=== PATIENT | male | born 1950 | race Caucasian/White ===

== ENCOUNTER 2017-12-31 10:51 | Inpatient (IN) | payer MEDICARE, OTHER ==
[2017-12-26 11:30] LABS: BASOPHILS % (AUTO) 0.4 % (0-1); EOSINOPHILS # (AUTO) 0.2 X10'3 (0-0.9); EOSINOPHILS % (AUTO) 2.9 % (0-6); HEMATOCRIT 46.4 % (42.0-52.0); HEMOGLOBIN 16.2 g/dl (14.0-17.9); LYMPHOCYTES # (AUTO) 1.5 X10'3 (1.1-4.8); MEAN CORPUSCULAR HEMOGLOBIN 31.3 PG (27.0-31.0); MEAN CORPUSCULAR HGB CONC 34.9 % (33.0-36.5); MEAN CORPUSCULAR VOLUME 89.7 FL (78-98); MEAN PLATELET VOLUME 8.1 FL (7.4-10.4); MONOCYTES # (AUTO) 0.5 X10'3 (0-0.9); MONOCYTES % (AUTO) 9.3 % (2-12); NEUTROPHILS # (AUTO) 3.2 X10'3 (1.8-7.7); NEUTROPHILS % (AUTO) 59.4 % (42-75); PLATELET COUNT 203 X10'3 (140-440); RED BLOOD COUNT 5.18 X10'6 (4.70-6.10); RED CELL DISTRIBUTION WIDTH 13.1 % (11.5-14.5); WHITE BLOOD COUNT 5.3 X10'3 (4.5-11.0)
[2017-12-26 11:40] LABS: ALBUMIN 3.9 G/DL (3.4-5.0); ANION GAP 10 (8-16); BLOOD UREA NITROGEN 20 MG/DL (7-18); BUN/CREATININE RATIO 17.9 (5.4-32.0); CHLORIDE 106 MMOL/L (99-107); CREATININE 1.12 MG/DL (0.60-1.10); GLUCOSE 103 MG/DL (70-104); POTASSIUM 4.1 MMOL/L (3.5-5.1); SODIUM 144 MMOL/L (135-145); TOTAL CARBON DIOXIDE 28.4 MMOL/L (24-32); eGFR 66 ML/MIN
[2017-12-26 11:41] LABS: PARTIAL THROMBOPLASTIN TIME 26 SECONDS (22-32); PROTHROMBIN TIME 10.4 SECONDS (9.0-12.0)
[2017-12-31] VITALS (14 sets, daily range): BP systolic 123–163; BP diastolic 68–102
[~2017-12-31] VITALS: Ht 203.2 cm; Wt 102.1 kg
[~2017-12-31 10:51] MED LIST: heparin 10,000 units/1 ML INJ ONE; papaverine 30 mg/ml 2ml inj. ONE
[2017-12-31] MEDS ORDERED: diphenhydrAMINE 25mg capsule PO PRN (11:10)
[2017-12-31] MEDS ORDERED: LORazepam 0.5 MG tablet PO PRN (11:10)
[2017-12-31] MEDS ORDERED: normal saline 1000ml 1,000 ML IV SCH ×2 (11:10→15:05)
[2017-12-31] MEDS ORDERED: LISI-600 PO (12:31)
[2017-12-31] MEDS ORDERED: ASPI-1053 PO (12:31)
[2017-12-31] MEDS ORDERED: ERGO2000 PO (12:31)
[2017-12-31] MEDS ORDERED: NITR0.4T SL (12:31)
[2017-12-31] MEDS ORDERED: IOHEXOL 350 MG/ML 150 ML injection IV ONE (13:52)
[2017-12-31] MEDS ORDERED: LIDOcaine 1% w/EPI 1:100,000 30ml vial (MDV) ONE (13:52)
[2017-12-31] MEDS ORDERED: midazolam 2 mg/2 ml injection ONE (14:12)
[2017-12-31] MEDS ORDERED: fentaNYL/PF 50MCG/1 ML 2ML syringe ONE (14:13)
[2017-12-31] MEDS ORDERED: hydrALAZINE 20mg/ml inj. IV ONE (14:27)
[2017-12-31] MEDS ORDERED: nitroGLYCERIN 0.4mg SUBLingual tab SL PRN ×2 (15:05→21:00)
[2017-12-31] MEDS ORDERED: OXAZEpam 15mg capsule PO PRN (15:05)
[2017-12-31] MEDS ORDERED: proCHLORperazine 10 MG/2 ml inj IV PRN (15:05)
[2017-12-31] MEDS ORDERED: HYDROcodone/acetaminophen 10/325mg tab PO PRN (15:05)
[2017-12-31] MEDS ORDERED: HYDROcodone/acetaminophen 5mg/325mg tablet PO PRN (15:05)
[2017-12-31] MEDS ORDERED: ondansetron/PF 4mg/2ml inj IV PRN (15:05)
[2018-01-01] VITALS (9 sets, daily range): BP systolic 121–173; BP diastolic 69–98
[2018-01-01 06:17] LABS: CHOL/HDL RATIO 4.7 (0.00-4.99); CHOLESTEROL 166 MG/DL (0-200); HDL CHOLESTEROL 35 MG/DL (35-60); LDL CHOLESTEROL 116 MG/DL (50-100); TRIGLYCERIDES 117 MG/DL (20-135)
[2018-01-01] MEDS ORDERED: dextrose 50%-water 50ml dispensing syringe IV PRN (06:50)
[2018-01-01] MEDS ORDERED: MESSAGE TO NURSING PO ONE ×5 (06:50→10:00)
[2018-01-01 07:27] LABS: BASOPHILS % (AUTO) 0.3 % (0-1); EOSINOPHILS # (AUTO) 0.2 X10'3 (0-0.9); EOSINOPHILS % (AUTO) 2.8 % (0-6); HEMATOCRIT 47.5 % (42.0-52.0); HEMOGLOBIN 16.3 g/dl (14.0-17.9); LYMPHOCYTES # (AUTO) 1.1 X10'3 (1.1-4.8); MEAN CORPUSCULAR HEMOGLOBIN 30.6 PG (27.0-31.0); MEAN CORPUSCULAR HGB CONC 34.4 % (33.0-36.5); MEAN CORPUSCULAR VOLUME 89.1 FL (78-98); MEAN PLATELET VOLUME 7.9 FL (7.4-10.4); MONOCYTES # (AUTO) 0.6 X10'3 (0-0.9); MONOCYTES % (AUTO) 9.1 % (2-12); NEUTROPHILS # (AUTO) 5.1 X10'3 (1.8-7.7); NEUTROPHILS % (AUTO) 71.8 % (42-75); PLATELET COUNT 210 X10'3 (140-440); RED BLOOD COUNT 5.33 X10'6 (4.70-6.10); RED CELL DISTRIBUTION WIDTH 13.4 % (11.5-14.5); WHITE BLOOD COUNT 7.1 X10'3 (4.5-11.0)
[2018-01-01 07:36] LABS: ALBUMIN 4.2 G/DL (3.4-5.0); ANION GAP 8 (8-16); BLOOD UREA NITROGEN 13 MG/DL (7-18); BUN/CREATININE RATIO 12.3 (5.4-32.0); CALCIUM 9.2 MG/DL (8.5-10.1); CHLORIDE 106 MMOL/L (99-107); CREATININE 1.06 MG/DL (0.60-1.10); GLUCOSE 106 MG/DL (70-104); SODIUM 143 MMOL/L (135-145); TOTAL CARBON DIOXIDE 29.5 MMOL/L (24-32); eGFR 70 ML/MIN
[2018-01-01 07:37] LABS: PARTIAL THROMBOPLASTIN TIME 26 SECONDS (22-32); PROTHROMBIN TIME 10.3 SECONDS (9.0-12.0)
[2018-01-01] MEDS: metoprolol succinate 25mg (24-HOUR) SR. Tablet PO SCH (07:44)
[2018-01-01] MEDS: aspirin 81mg tab.chew PO SCH (07:44)
[2018-01-01] MEDS: atorvastatin 20mg tablet PO SCH (07:44)
[2018-01-01] MEDS: vitamin D (cholecalciferol) 1,000 unit tablet PO SCH (07:45)
[2018-01-01] MEDS: lisinopril 10 MG tablet PO SCH (07:45)
[2018-01-01 08:32] LABS: ALANINE AMINOTRANSFERASE 29 U/L (12-78); ALBUMIN/GLOBULIN RATIO 1.1 (1.1-1.5); ALKALINE PHOSPHATASE 91 IU/L (46-116); ASPARTATE AMINO TRANSFERASE 26 U/L (10-37); BILIRUBIN,TOTAL 1.7 MG/DL (0.1-1.0); TOTAL PROTEIN 8.1 G/DL (6.4-8.2)
[2018-01-01] MEDS ORDERED: nitroGLYCERIN in D5W 50mg/250ml (Tridil) infusion IV ONE (10:04)
[2018-01-01] MEDS ORDERED: isoflurane 100ml inhalation liquid IH ONE (10:04)
[2018-01-01] MEDS ORDERED: ringers solution, lacted 1,000 ML IV ONE (15:14)
[2018-01-01 15:26] LABS: CLARITY,URINE CLEAR (Clear); COLOR,URINE STRAW (Yellow); GLUCOSE, URINE NEGATIVE (Neg); KETONES,URINE NEGATIVE (Neg); LEUKOCYTE ESTERASE ,URINE NEGATIVE (Neg); NITRITES, URINE NEGATIVE (Neg); OCCULT BLOOD,URINE NEGATIVE (Neg); PROTEIN,URINE NEGATIVE (Neg); UROBILINOGEN,URINE 0.2 E.U/dL (0.2-1.0)
[2018-01-01 15:29] LABS: UA COLLECTION TYPE VOIDED
[2018-01-01 17:15] LABS: ABG BASE EXCESS -0.7 mmol/L (-2.0-3.0); ABG OXYGEN SATURATION 96.1 % (95-98); ABG PCO2 (T) 35.8 mmHg (35.0-48.0); ABG PH (T) 7.426 (7.350-7.450); ABG PO2 (T) 79.3 mmHg (83-108); ALLEN'S TEST Positive; FCOHb 0.5 % (0.5-1.5); FMetHb 0.2 % (0.3-1.12); FO2Hb 95.4 % (94-100); TOTAL HEMOGLOBIN 16.7 G/dl (14.0-18.0)
[2018-01-02] VITALS (17 sets, daily range): BP systolic 106–162; BP diastolic 62–90
[2018-01-02] MEDS ORDERED: vancomycin/NS 1 GM ADD-VANTAGE 250 ML IV ONE ×2 (05:00→09:25)
[2018-01-02] MEDS ORDERED: insulin regular, human inj. 100 UNITS in normal saline 100ml IV soln 100 ML IV SCH ×2 (05:00)
[2018-01-02] MEDS ORDERED: ceFAZolin 2gm in dextrose, iso 100 ML IV ONE (05:00)
[2018-01-02 05:07] LABS: PROTHROMBIN TIME 10.2 SECONDS (9.0-12.0)
[2018-01-02 05:18] LABS: ALBUMIN 3.6 G/DL (3.4-5.0); ANION GAP 8 (8-16); BLOOD UREA NITROGEN 15 MG/DL (7-18); BUN/CREATININE RATIO 14.6 (5.4-32.0); CALCIUM 9.1 MG/DL (8.5-10.1); CHLORIDE 108 MMOL/L (99-107); CREATININE 1.03 MG/DL (0.60-1.10); GLUCOSE 103 MG/DL (70-104); POTASSIUM 4.1 MMOL/L (3.5-5.1); SODIUM 143 MMOL/L (135-145); TOTAL CARBON DIOXIDE 27.5 MMOL/L (24-32); eGFR 72 ML/MIN
[2018-01-02 05:21] LABS: BASOPHILS % (AUTO) 0.5 % (0-1); EOSINOPHILS # (AUTO) 0.4 X10'3 (0-0.9); EOSINOPHILS % (AUTO) 5.1 % (0-6); HEMATOCRIT 43.4 % (42.0-52.0); LYMPHOCYTES # (AUTO) 1.4 X10'3 (1.1-4.8); LYMPHOCYTES % (AUTO) 20.3 % (21-51); MEAN CORPUSCULAR HGB CONC 34.6 % (33.0-36.5); MEAN CORPUSCULAR VOLUME 89.5 FL (78-98); MEAN PLATELET VOLUME 8.3 FL (7.4-10.4); MONOCYTES # (AUTO) 0.7 X10'3 (0-0.9); MONOCYTES % (AUTO) 10.5 % (2-12); NEUTROPHILS # (AUTO) 4.4 X10'3 (1.8-7.7); NEUTROPHILS % (AUTO) 63.6 % (42-75); PLATELET COUNT 183 X10'3 (140-440); RED BLOOD COUNT 4.85 X10'6 (4.70-6.10); RED CELL DISTRIBUTION WIDTH 13.6 % (11.5-14.5); WHITE BLOOD COUNT 6.9 X10'3 (4.5-11.0)
[2018-01-02] MEDS ORDERED: LORazepam 2 mg/ml vial IV ONE (06:00)
[2018-01-02] MEDS ORDERED: famotidine 20mg tablet PO ONE (06:00)
[2018-01-02] MEDS ORDERED: albumin (human) 25% 100 ML IV solution IV ONE (08:00)
[2018-01-02] MEDS ORDERED: MAGNESIUM SULFATE 4 MEQ/ML (1gm/2ml) injection ONE (08:00)
[2018-01-02] MEDS ORDERED: calcium chloride 100 MG/1 ML inj IV ONE (08:00)
[2018-01-02] MEDS: atorvastatin 20mg tablet PO SCH (08:00)
[2018-01-02] MEDS ORDERED: LIDOcaine 2% (20 mg/ml) 5ml cardiac syringe ONE (08:00)
[2018-01-02] MEDS: lisinopril 10 MG tablet PO SCH (08:00)
[2018-01-02] MEDS ORDERED: aminocaproic acid 250 MG/1 ML inj. ONE (08:00)
[2018-01-02] MEDS: aspirin 81mg tab.chew PO SCH (08:00)
[2018-01-02] MEDS ORDERED: heparin 1,000 units/ml 10ml inj ONE (08:00)
[2018-01-02] MEDS ORDERED: NORepinephrine 1 mg/ml inj IV ONE (08:00)
[2018-01-02] MEDS ORDERED: heparin 10,000 units/1 ML INJ ONE (08:00)
[2018-01-02] MEDS ORDERED: phenylephrine 10mg/ml inj. IV ONE (08:00)
[2018-01-02] MEDS ORDERED: sodium bicarbonate (8.4%) 1 mEq/ml syringe ONE (08:00)
[2018-01-02] MEDS ORDERED: mupirocin 2% nasal ointment 1gm UD NS SCH (08:00)
[2018-01-02] MEDS ORDERED: potassium Cl 2 mEq/ml inj IV ONE (08:00)
[2018-01-02] MEDS: vitamin D (cholecalciferol) 1,000 unit tablet PO SCH (08:00)
[2018-01-02] MEDS ORDERED: insulin Lispro (HumaLOG) vial - multi-dose SQ SCH (09:00)
[2018-01-02] MEDS: metoprolol succinate 25mg (24-HOUR) SR. Tablet PO SCH (09:01)
[2018-01-02] MEDS ORDERED: LORazepam 2 mg/ml vial ONE (09:53)
[2018-01-02] MEDS ORDERED: SUFENTANIL CITRATE 50 MCG/ML 2ml ampule IV ONE (10:05)
[2018-01-02] MEDS ORDERED: propofol inj 20 ML IV ONE (10:07)
[2018-01-02] MEDS ORDERED: rocuronium 10mg/ml inj IV ONE ×2 (10:07)
[2018-01-02 11:11] LABS: ABG BASE EXCESS -1.6 mmol/L (-2.0-3.0); ABG OXYGEN SATURATION 99.6 % (95-98); ABG PCO2 34.1 mmHg (35.0-45.0); ABG PH 7.428 (7.350-7.450); ABG PO2 274.5 mmHg (60.0-100.0); CL (ABG) 107 mmol/L (99-107); FCOHb 0.7 % (0.5-1.5); FMetHb 0.1 % (0.3-1.12); FO2Hb 98.8 % (94-100); GLUCOSE (ABG) 123 mg/dl (70-105); IONIZED CA (ABG) 1.15 mmol/L (1.03-1.32); NA (ABG) 137 mmol/L (135-145); TOTAL HEMOGLOBIN 14.2 G/dl (14.0-18.0)
[2018-01-02] MEDS ORDERED: heparin 10,000 units/1 ML INJ IR ONE (11:13)
[2018-01-02] MEDS ORDERED: papaverine 30 mg/ml 2ml inj. IA ONE (11:13)
[2018-01-02 11:51] LABS: ABG BASE EXCESS -1.6 mmol/L (-2.0-3.0); ABG HCO3 22.9 mmol/L (22.0-26.0); ABG OXYGEN SATURATION 99.4 % (95-98); ABG PH 7.397 (7.350-7.450); ABG PO2 284.5 mmHg (60.0-100.0); CL (ABG) 107 mmol/L (99-107); FCOHb 0.4 % (0.5-1.5); FMetHb 0.5 % (0.3-1.12); FO2Hb 98.5 % (94-100); GLUCOSE (ABG) 126 mg/dl (70-105); IONIZED CA (ABG) 1.13 mmol/L (1.03-1.32); K (ABG) 4.3 mmol/L (3.3-5.1); NA (ABG) 136 mmol/L (135-145); TOTAL HEMOGLOBIN 14.5 G/dl (14.0-18.0)
[2018-01-02 12:21] LABS: ABG BASE EXCESS -0.4 mmol/L (-2.0-3.0); ABG HCO3 23.4 mmol/L (22.0-26.0); ABG OXYGEN SATURATION 98.9 % (95-98); ABG PCO2 35.2 mmHg (35.0-45.0); ABG PH 7.441 (7.350-7.450); ABG PO2 367.3 mmHg (60.0-100.0); CL (ABG) 106 mmol/L (99-107); FCOHb 0.3 % (0.5-1.5); FMetHb 0.6 % (0.3-1.12); GLUCOSE (ABG) 105 mg/dl (70-105); IONIZED CA (ABG) 0.96 mmol/L (1.03-1.32); K (ABG) 6.2 mmol/L (3.3-5.1); NA (ABG) 131 mmol/L (135-145); TOTAL HEMOGLOBIN 10.8 G/dl (14.0-18.0)
[2018-01-02 12:36] LABS: ABG BASE EXCESS -0.7 mmol/L (-2.0-3.0); ABG HCO3 23.3 mmol/L (22.0-26.0); ABG OXYGEN SATURATION 99.1 % (95-98); ABG PCO2 36.4 mmHg (35.0-45.0); ABG PH 7.425 (7.350-7.450); ABG PO2 332.4 mmHg (60.0-100.0); CL (ABG) 106 mmol/L (99-107); FCOHb 0.3 % (0.5-1.5); FMetHb 0.4 % (0.3-1.12); FO2Hb 98.4 % (94-100); GLUCOSE (ABG) 108 mg/dl (70-105); IONIZED CA (ABG) 1.02 mmol/L (1.03-1.32); K (ABG) 5.6 mmol/L (3.3-5.1); NA (ABG) 133 mmol/L (135-145); TOTAL HEMOGLOBIN 11.7 G/dl (14.0-18.0)
[2018-01-02 12:46] LABS: ABG BASE EXCESS VENOUS -1.9 mmol/L; ABG HCO3 VENOUS 22.9 mmol/L; ABG PCO2 VENOUS 39.4 mmHg; CL (ABG) 105 mmol/L (99-107); FCOHb VENOUS 0.3 %; FMetHb VENOUS 0.4 %; FO2Hb VENOUS 83.3 %; GLUCOSE (ABG) 104 mg/dl (70-105); K (ABG) 5.4 mmol/L (3.3-5.1); NA (ABG) 134 mmol/L (135-145); TOTAL HEMOGLOBIN 11.4 G/dl (14.0-18.0)
[2018-01-02 13:16] LABS: ABG BASE EXCESS -2.1 mmol/L (-2.0-3.0); ABG HCO3 22.7 mmol/L (22.0-26.0); ABG OXYGEN SATURATION 99.3 % (95-98); ABG PH 7.382 (7.350-7.450); ABG PO2 317.7 mmHg (60.0-100.0); CL (ABG) 107 mmol/L (99-107); FCOHb 0.1 % (0.5-1.5); FMetHb 0.4 % (0.3-1.12); FO2Hb 98.8 % (94-100); GLUCOSE (ABG) 113 mg/dl (70-105); IONIZED CA (ABG) 1.06 mmol/L (1.03-1.32); K (ABG) 4.9 mmol/L (3.3-5.1); NA (ABG) 136 mmol/L (135-145); TOTAL HEMOGLOBIN 12.5 G/dl (14.0-18.0)
[2018-01-02 14:06] LABS: ABG BASE EXCESS -0.1 mmol/L (-2.0-3.0); ABG HCO3 23.5 mmol/L (22.0-26.0); ABG OXYGEN SATURATION 98.3 % (95-98); ABG PCO2 34.7 mmHg (35.0-45.0); ABG PH 7.448 (7.350-7.450); ABG PO2 142.4 mmHg (60.0-100.0); CL (ABG) 109 mmol/L (99-107); FMetHb 0.5 % (0.3-1.12); FO2Hb 97.8 % (94-100); GLUCOSE (ABG) 104 mg/dl (70-105); IONIZED CA (ABG) 1.25 mmol/L (1.03-1.32); K (ABG) 4.3 mmol/L (3.3-5.1); NA (ABG) 136 mmol/L (135-145); TOTAL HEMOGLOBIN 12.4 G/dl (14.0-18.0)
[2018-01-02 14:06] LABS: ACTIVATED CLOTTING TIME 112 SEC (101-148)
[2018-01-02 14:06] LABS: ACT @ 1.70 U 235 SEC (193-297); ACT @ 2.84 U 326 SEC (260-420); BASELINE ACT 121 SEC (101-148)
[2018-01-02] MEDS ORDERED: morphine 4 MG/ML inj SYRINge IV PRN (14:25)
[2018-01-02] MEDS ORDERED: potassium Cl 20mEq/100mL bag 100 ML IV PRN ×2 (14:25)
[2018-01-02] MEDS ORDERED: acetaminophen 325mg tablet PO PRN (14:25)
[2018-01-02] MEDS ORDERED: Neutra Phos packet PO PRN (14:25)
[2018-01-02] MEDS ORDERED: niCARDipine/sod cl 20mg/200ml 200 ML IV PRN (14:25)
[2018-01-02] MEDS ORDERED: sodium chloride 0.45% 1,000 ML IV SCH (14:25)
[2018-01-02] MEDS ORDERED: sodium phosphate inj. 30 MMOL in dextrose 5%-water 250 ML IV PRN (14:25)
[2018-01-02] MEDS ORDERED: ondansetron/PF 4mg/2ml inj IV PRN (14:25)
[2018-01-02] MEDS ORDERED: normal saline 250ml IV soln 250 ML IV PRN (14:25)
[2018-01-02] MEDS ORDERED: magnesium/D5W IVPB 100 ML IV PRN (14:25)
[2018-01-02] MEDS ORDERED: nitroGLYCERIN-Tridil 50MG/D5W 250 ML IV PRN (14:25)
[2018-01-02] MEDS ORDERED: sodium phosphate inj. 15 MMOL in dextrose 5%-water 150 ML IV PRN (14:25)
[2018-01-02] MEDS ORDERED: HYDROcodone/acetaminophen 10/325mg tab PO PRN (14:25)
[2018-01-02] MEDS ORDERED: dextrose 50%-water 50ml dispensing syringe IV PRN (14:25)
[2018-01-02] MEDS ORDERED: magnesium hydroxide 30ml (MOM) UD suspension PO PRN (14:25)
[2018-01-02] MEDS ORDERED: DOPamine 400mg/D5W 250ml 250 ML IV PRN (14:25)
[2018-01-02] MEDS: insulin regular, human inj. 100 UNITS in normal saline 100ml IV soln 100 ML IV SCH ×8 (14:25→20:09)
[2018-01-02] MEDS ORDERED: metoclopramide 5 mg/ml inj IV PRN (14:25)
[2018-01-02] MEDS ORDERED: magnesium 4gm in 100ml NS 100 ML IV PRN (14:25)
[2018-01-02 14:45] LABS: ABG HCO3 22.3 mmol/L (22.0-26.0); ABG OXYGEN SATURATION 97.4 % (95-98); ABG PCO2 (T) 32.6 mmHg (35.0-48.0); ABG PH (T) 7.452 (7.350-7.450); ABG PO2 (T) 103.1 mmHg (83-108); FCOHb 0.3 % (0.5-1.5); FLOW 40 L/min; FMetHb 0.1 % (0.3-1.12); PEEP 5 cm H2O; RESPIRATORY RATE 14 b/min; TIDAL VOLUME 700 mL; TOTAL HEMOGLOBIN 13.1 G/dl (14.0-18.0)
[2018-01-02] MEDS: morphine 4 MG/ML inj SYRINge IV PRN ×5 (15:02→19:21)
[2018-01-02 15:03] LABS: BASOPHILS % (AUTO) 0 % (0-1); EOSINOPHILS # (AUTO) 0.1 X10'3 (0-0.9); EOSINOPHILS % (AUTO) 0.6 % (0-6); HEMATOCRIT 35.7 % (42.0-52.0); HEMOGLOBIN 12.3 g/dl (14.0-17.9); LYMPHOCYTES # (AUTO) 0.4 X10'3 (1.1-4.8); LYMPHOCYTES % (AUTO) 4.5 % (21-51); MEAN CORPUSCULAR HEMOGLOBIN 30.9 PG (27.0-31.0); MEAN CORPUSCULAR HGB CONC 34.3 % (33.0-36.5); MEAN CORPUSCULAR VOLUME 90.2 FL (78-98); MEAN PLATELET VOLUME 7.7 FL (7.4-10.4); MONOCYTES # (AUTO) 0.6 X10'3 (0-0.9); MONOCYTES % (AUTO) 5.8 % (2-12); NEUTROPHILS # (AUTO) 8.8 X10'3 (1.8-7.7); NEUTROPHILS % (AUTO) 89.1 % (42-75); PLATELET COUNT 136 X10'3 (140-440); RED BLOOD COUNT 3.96 X10'6 (4.70-6.10); WHITE BLOOD COUNT 9.9 X10'3 (4.5-11.0)
[2018-01-02 15:18] LABS: INR 1.1 INR; PARTIAL THROMBOPLASTIN TIME 25 SECONDS (22-32); PROTHROMBIN TIME 11.7 SECONDS (9.0-12.0)
[2018-01-02 15:19] LABS: ALANINE AMINOTRANSFERASE 20 U/L (12-78); ALBUMIN 2.8 G/DL (3.4-5.0); ALBUMIN/GLOBULIN RATIO 1.2 (1.1-1.5); ALKALINE PHOSPHATASE 59 IU/L (46-116); ANION GAP 9 (8-16); ASPARTATE AMINO TRANSFERASE 30 U/L (10-37); BILIRUBIN,TOTAL 1.5 MG/DL (0.1-1.0); BLOOD UREA NITROGEN 14 MG/DL (7-18); BUN/CREATININE RATIO 12.2 (5.4-32.0); CALCIUM 8.3 MG/DL (8.5-10.1); CHLORIDE 111 MMOL/L (99-107); CREATININE 1.15 MG/DL (0.60-1.10); GLUCOSE 97 MG/DL (70-104); MAGNESIUM 3.4 MG/DL (1.5-2.4); PHOSPHORUS 1.7 MG/DL (2.3-4.5); POTASSIUM 4.1 MMOL/L (3.5-5.1); SODIUM 143 MMOL/L (135-145); TOTAL CARBON DIOXIDE 23.5 MMOL/L (24-32); TOTAL PROTEIN 5.2 G/DL (6.4-8.2); eGFR 64 ML/MIN
[2018-01-02] MEDS: ceFAZolin 1GM/D5W- ADD-VANTAGE 50 ML IV SCH (15:49)
[2018-01-02] MEDS: albumin (Human) 5% 250ml 250 ML IV PRN ×3 (15:55→23:21)
[2018-01-02] MEDS: potassium Cl 20mEq/100mL bag 100 ML IV PRN (17:25)
[2018-01-02] MEDS: insulin Lispro (HumaLOG) vial - multi-dose SQ SCH (17:55)
[2018-01-02] MEDS: mupirocin 2% ointment 22GM NS SCH (20:00)
[2018-01-02] MEDS: docusate sod 100mg capsule PO SCH (20:00)
[2018-01-02] MEDS: vancomycin/NS 1 GM ADD-VANTAGE 250 ML IV SCH (20:11)
[2018-01-02 23:36] LABS: ABG BASE EXCESS -3.1 mmol/L (-2.0-3.0); ABG HCO3 21.7 mmol/L (22.0-26.0); ABG OXYGEN SATURATION 97.2 % (95-98); ABG PCO2 (T) 37.9 mmHg (35.0-48.0); ABG PH (T) 7.376 (7.350-7.450); ABG PO2 (T) 100.9 mmHg (83-108); FCOHb 0.3 % (0.5-1.5); FMetHb 0.2 % (0.3-1.12); FO2Hb 96.7 % (94-100); MINUTE VOLUME 8 L/min; PATIENT TEMPERATURE 36.8; PEEP 5 cm H2O; RESPIRATORY RATE (OBSERVED) 10 b/min; TOTAL HEMOGLOBIN 13.4 G/dl (14.0-18.0)
[2018-01-03] VITALS (24 sets, daily range): BP systolic 100–153; BP diastolic 52–94
[2018-01-03] MEDS: ceFAZolin 1GM/D5W- ADD-VANTAGE 50 ML IV SCH ×3 (00:42→16:18)
[2018-01-03] MEDS: insulin regular, human inj. 100 UNITS in normal saline 100ml IV soln 100 ML IV SCH ×4 (01:05→02:07)
[2018-01-03 03:15] LABS: BASOPHILS % (AUTO) 0 % (0-1); EOSINOPHILS % (AUTO) 0.1 % (0-6); HEMATOCRIT 35.4 % (42.0-52.0); HEMOGLOBIN 12.3 g/dl (14.0-17.9); LYMPHOCYTES # (AUTO) 0.3 X10'3 (1.1-4.8); LYMPHOCYTES % (AUTO) 2.6 % (21-51); MEAN CORPUSCULAR HEMOGLOBIN 31.8 PG (27.0-31.0); MEAN CORPUSCULAR HGB CONC 34.6 % (33.0-36.5); MEAN CORPUSCULAR VOLUME 91.8 FL (78-98); MEAN PLATELET VOLUME 8.8 FL (7.4-10.4); MONOCYTES # (AUTO) 0.5 X10'3 (0-0.9); MONOCYTES % (AUTO) 4.8 % (2-12); NEUTROPHILS % (AUTO) 92.5 % (42-75); PLATELET COUNT 123 X10'3 (140-440); RED BLOOD COUNT 3.86 X10'6 (4.70-6.10); RED CELL DISTRIBUTION WIDTH 12.5 % (11.5-14.5); WHITE BLOOD COUNT 10.8 X10'3 (4.5-11.0)
[2018-01-03 03:19] LABS: INR 1.1 INR; PARTIAL THROMBOPLASTIN TIME 27 SECONDS (22-32); PROTHROMBIN TIME 10.9 SECONDS (9.0-12.0)
[2018-01-03 03:30] LABS: ALANINE AMINOTRANSFERASE 34 U/L (12-78); ALBUMIN 3.7 G/DL (3.4-5.0); ALBUMIN/GLOBULIN RATIO 1.5 (1.1-1.5); ALKALINE PHOSPHATASE 58 IU/L (46-116); ANION GAP 10 (8-16); ASPARTATE AMINO TRANSFERASE 48 U/L (10-37); BILIRUBIN,TOTAL 2.4 MG/DL (0.1-1.0); BLOOD UREA NITROGEN 14 MG/DL (7-18); BUN/CREATININE RATIO 13.5 (5.4-32.0); CHLORIDE 111 MMOL/L (99-107); CREATININE 1.04 MG/DL (0.60-1.10); GLUCOSE 154 MG/DL (70-104); MAGNESIUM 2.2 MG/DL (1.5-2.4); PHOSPHORUS 3.5 MG/DL (2.3-4.5); POTASSIUM 4.4 MMOL/L (3.5-5.1); SODIUM 145 MMOL/L (135-145); TOTAL CARBON DIOXIDE 23.7 MMOL/L (24-32); TOTAL PROTEIN 6.1 G/DL (6.4-8.2); eGFR 72 ML/MIN
[2018-01-03] MEDS: potassium Cl 20mEq/100mL bag 100 ML IV PRN (03:43)
[2018-01-03] MEDS: morphine 4 MG/ML inj SYRINge IV PRN ×2 (04:59→07:32)
[2018-01-03] MEDS ORDERED: albumin (Human) 5% 250 ML IV solution IV STA (06:49)
[2018-01-03] MEDS: magnesium/D5W IVPB 100 ML IV PRN (07:04)
[2018-01-03] MEDS ORDERED: metoprolol tartrate 12.5mg (1/2 tablet) PO SCH (08:00)
[2018-01-03] MEDS ORDERED: atorvastatin 10mg tablet PO SCH (08:00)
[2018-01-03] MEDS ORDERED: lisinopril 5mg tablet PO SCH ×2 (08:00→21:00)
[2018-01-03] MEDS: metoprolol tartrate 25mg tablet PO SCH ×2 (08:00→19:55)
[2018-01-03] MEDS ORDERED: aspirin 325mg tablet, delayed-release (Ecotrin) PO SCH (08:00)
[2018-01-03] MEDS: docusate sod 100mg capsule PO SCH ×2 (08:21→19:55)
[2018-01-03] MEDS: pantoprazole 40mg Tablet.DR PO SCH (08:22)
[2018-01-03] MEDS: vancomycin/NS 1 GM ADD-VANTAGE 250 ML IV SCH ×2 (08:22→19:50)
[2018-01-03] MEDS: ketorolac tromethamine 15mg/ml inj. IV SCH ×3 (08:25→19:54)
[2018-01-03] MEDS: insulin Lispro (HumaLOG) vial - multi-dose SQ SCH (08:34)
[2018-01-03] MEDS: mupirocin 2% ointment 22GM NS SCH ×2 (08:46→20:06)
[2018-01-03] MEDS ORDERED: metoprolol tartrate 25mg tablet PO ONE (10:40)
[2018-01-03] MEDS ORDERED: dextrose ORAL solution 15 GM/59 ML bottle PO PRN ×2 (12:20)
[2018-01-03] MEDS ORDERED: glucagon, human recombinant 1mg kit SUBCUT PRN (12:20)
[2018-01-03] MEDS ORDERED: MESSAGE TO PHARMACY PO ONE (12:20)
[2018-01-03] MEDS ORDERED: insulin Lispro (HumaLOG) vial - multi-dose SQ SCH (12:20)
[2018-01-03] MEDS ORDERED: dextrose 50%-water 50ml dispensing syringe IV PRN ×2 (12:20)
[2018-01-03] MEDS ORDERED: calcium carbonate 500mg chew tablet PO PRN (19:30)
[2018-01-03] MEDS: lactobacillus rhamnosus 10,000 MMU CELLS/CAPSULE PO SCH (19:55)
[2018-01-04] VITALS (23 sets, daily range): BP systolic 97–170; BP diastolic 65–98
[2018-01-04] MEDS: ceFAZolin 1GM/D5W- ADD-VANTAGE 50 ML IV SCH (00:16)
[2018-01-04] MEDS: ketorolac tromethamine 15mg/ml inj. IV SCH ×4 (02:15→19:42)
[2018-01-04 02:50] LABS: BASOPHILS % (AUTO) 0 % (0-1); EOSINOPHILS # (AUTO) 0.1 X10'3 (0-0.9); EOSINOPHILS % (AUTO) 1.2 % (0-6); HEMATOCRIT 34.7 % (42.0-52.0); HEMOGLOBIN 11.8 g/dl (14.0-17.9); LYMPHOCYTES # (AUTO) 0.7 X10'3 (1.1-4.8); LYMPHOCYTES % (AUTO) 6.4 % (21-51); MEAN CORPUSCULAR HGB CONC 33.9 % (33.0-36.5); MEAN CORPUSCULAR VOLUME 91.4 FL (78-98); MEAN PLATELET VOLUME 8.8 FL (7.4-10.4); MONOCYTES # (AUTO) 0.8 X10'3 (0-0.9); MONOCYTES % (AUTO) 7.9 % (2-12); NEUTROPHILS # (AUTO) 9.1 X10'3 (1.8-7.7); NEUTROPHILS % (AUTO) 84.5 % (42-75); PLATELET COUNT 105 X10'3 (140-440); RED BLOOD COUNT 3.79 X10'6 (4.70-6.10); RED CELL DISTRIBUTION WIDTH 13.5 % (11.5-14.5); WHITE BLOOD COUNT 10.8 X10'3 (4.5-11.0)
[2018-01-04 03:07] LABS: ALBUMIN 3.5 G/DL (3.4-5.0); ANION GAP 8 (8-16); BLOOD UREA NITROGEN 26 MG/DL (7-18); BUN/CREATININE RATIO 22.8 (5.4-32.0); CALCIUM 8.3 MG/DL (8.5-10.1); CHLORIDE 105 MMOL/L (99-107); CREATININE 1.14 MG/DL (0.60-1.10); GLUCOSE 124 MG/DL (70-104); MAGNESIUM 2.5 MG/DL (1.5-2.4); PHOSPHORUS 2.8 MG/DL (2.3-4.5); POTASSIUM 5.1 MMOL/L (3.5-5.1); SODIUM 138 MMOL/L (135-145); TOTAL CARBON DIOXIDE 25.4 MMOL/L (24-32); eGFR 64 ML/MIN
[2018-01-04] MEDS ORDERED: furosemide 40mg/4ml inj IV ONE (08:15)
[2018-01-04] MEDS ORDERED: magnesium 2GM in 50ml NS 50 ML IV PRN (08:15)
[2018-01-04] MEDS ORDERED: magnesium Cl slow-release 64mg tablet PO PRN (08:15)
[2018-01-04] MEDS ORDERED: potassium Cl 20 mEq SR tablet PO PRN ×2 (08:15)
[2018-01-04] MEDS ORDERED: magnesium 4gm in 100ml NS 100 ML IV PRN (08:15)
[2018-01-04] MEDS ORDERED: potassium Cl 40MEQ/NS 500ml 500 ML IV PRN ×2 (08:15)
[2018-01-04] MEDS: pantoprazole 40mg Tablet.DR PO SCH (08:52)
[2018-01-04] MEDS: metoprolol tartrate 25mg tablet PO SCH ×2 (08:52→19:43)
[2018-01-04] MEDS: docusate sod 100mg capsule PO SCH ×2 (08:52→19:42)
[2018-01-04] MEDS: lactobacillus rhamnosus 10,000 MMU CELLS/CAPSULE PO SCH ×2 (08:52→19:43)
[2018-01-04] MEDS: mupirocin 2% ointment 22GM NS SCH (09:02)
[2018-01-04] MEDS: magnesium Cl slow-release 64mg tablet PO SCH (19:48)
[2018-01-04] MEDS: potassium Cl 20 mEq SR tablet PO SCH (19:48)
[2018-01-04] MEDS: lisinopril 20mg tablet PO SCH (22:14)
[2018-01-05] MEDS: ketorolac tromethamine 15mg/ml inj. IV SCH ×3 (02:07→14:42)
[2018-01-05 05:52] LABS: ALBUMIN 3.2 G/DL (3.4-5.0); ANION GAP 8 (8-16); BLOOD UREA NITROGEN 30 MG/DL (7-18); BUN/CREATININE RATIO 24.8 (5.4-32.0); CALCIUM 8.2 MG/DL (8.5-10.1); CHLORIDE 104 MMOL/L (99-107); CREATININE 1.21 MG/DL (0.60-1.10); GLUCOSE 102 MG/DL (70-104); MAGNESIUM 2.3 MG/DL (1.5-2.4); POTASSIUM 4.2 MMOL/L (3.5-5.1); SODIUM 140 MMOL/L (135-145); TOTAL CARBON DIOXIDE 28.5 MMOL/L (24-32); eGFR 60 ML/MIN
[2018-01-05 07:00] VITALS: BP 130/79
[2018-01-05 07:21] LABS: BASOPHILS % (AUTO) 0 % (0-1); EOSINOPHILS % (AUTO) 0 % (0-6); HEMATOCRIT 33.7 % (42.0-52.0); HEMOGLOBIN 11.4 g/dl (14.0-17.9); LYMPHOCYTES # (AUTO) 0.6 X10'3 (1.1-4.8); LYMPHOCYTES % (AUTO) 8.2 % (21-51); MEAN CORPUSCULAR HEMOGLOBIN 30.7 PG (27.0-31.0); MEAN CORPUSCULAR HGB CONC 33.8 % (33.0-36.5); MEAN CORPUSCULAR VOLUME 90.8 FL (78-98); MEAN PLATELET VOLUME 8.9 FL (7.4-10.4); MONOCYTES # (AUTO) 0.8 X10'3 (0-0.9); MONOCYTES % (AUTO) 10.2 % (2-12); NEUTROPHILS # (AUTO) 6.3 X10'3 (1.8-7.7); NEUTROPHILS % (AUTO) 81.6 % (42-75); PLATELET COUNT 112 X10'3 (140-440); RED BLOOD COUNT 3.72 X10'6 (4.70-6.10); RED CELL DISTRIBUTION WIDTH 13.4 % (11.5-14.5); WHITE BLOOD COUNT 7.8 X10'3 (4.5-11.0)
[2018-01-05] MEDS: metoprolol tartrate 25mg tablet PO SCH ×2 (07:42→19:34)
[2018-01-05] MEDS: pantoprazole 40mg Tablet.DR PO SCH (07:43)
[2018-01-05] MEDS: aspirin 81mg tab.chew PO SCH (07:43)
[2018-01-05] MEDS: docusate sod 100mg capsule PO SCH ×2 (07:43→19:33)
[2018-01-05] MEDS: lactobacillus rhamnosus 10,000 MMU CELLS/CAPSULE PO SCH ×2 (07:43→19:33)
[2018-01-05] MEDS: magnesium Cl slow-release 64mg tablet PO SCH ×2 (08:00→20:00)
[2018-01-05] MEDS: potassium Cl 20 mEq SR tablet PO SCH ×2 (08:00→20:00)
[2018-01-05] MEDS: K and/or MAG REPLACEMENT MC SCH (08:00)
[2018-01-05 11:00] VITALS: BP 122/70
[2018-01-05 15:00] VITALS: BP_SYST 115; BP_SYST 122; BP_DIAS 62; BP_DIAS 70
[2018-01-05 19:00] VITALS: BP 125/73
[2018-01-05] MEDS: lisinopril 20mg tablet PO SCH (21:22)
[2018-01-05] MEDS: HYDROcodone/acetaminophen 10/325mg tab PO PRN (21:25)
[2018-01-05 23:00] VITALS: BP 100/52
[2018-01-06 03:00] VITALS: BP 138/72
[2018-01-06 05:26] LABS: BASOPHILS % (AUTO) 0.2 % (0-1); EOSINOPHILS # (AUTO) 0.3 X10'3 (0-0.9); EOSINOPHILS % (AUTO) 3.7 % (0-6); HEMATOCRIT 34.9 % (42.0-52.0); HEMOGLOBIN 12.1 g/dl (14.0-17.9); LYMPHOCYTES % (AUTO) 13.9 % (21-51); MEAN CORPUSCULAR HEMOGLOBIN 31.5 PG (27.0-31.0); MEAN CORPUSCULAR HGB CONC 34.7 % (33.0-36.5); MEAN CORPUSCULAR VOLUME 90.8 FL (78-98); MEAN PLATELET VOLUME 8.5 FL (7.4-10.4); MONOCYTES # (AUTO) 0.8 X10'3 (0-0.9); MONOCYTES % (AUTO) 10.6 % (2-12); NEUTROPHILS # (AUTO) 5.3 X10'3 (1.8-7.7); NEUTROPHILS % (AUTO) 71.6 % (42-75); PLATELET COUNT 141 X10'3 (140-440); RED BLOOD COUNT 3.85 X10'6 (4.70-6.10); RED CELL DISTRIBUTION WIDTH 13.3 % (11.5-14.5); WHITE BLOOD COUNT 7.5 X10'3 (4.5-11.0)
[2018-01-06 05:37] LABS: ANION GAP 8 (8-16); BLOOD UREA NITROGEN 30 MG/DL (7-18); CALCIUM 8.6 MG/DL (8.5-10.1); CHLORIDE 108 MMOL/L (99-107); CREATININE 1.11 MG/DL (0.60-1.10); GLUCOSE 103 MG/DL (70-104); MAGNESIUM 2.1 MG/DL (1.5-2.4); POTASSIUM 4.2 MMOL/L (3.5-5.1); SODIUM 142 MMOL/L (135-145); TOTAL CARBON DIOXIDE 26.2 MMOL/L (24-32); eGFR 66 ML/MIN
[2018-01-06] MEDS: magnesium Cl slow-release 64mg tablet PO SCH (06:54)
[2018-01-06] MEDS: K and/or MAG REPLACEMENT MC SCH (06:54)
[2018-01-06] MEDS: potassium Cl 20 mEq SR tablet PO SCH (06:54)
[2018-01-06 07:00] VITALS: BP 140/88
[2018-01-06] MEDS ORDERED: METO25TA6 PO (07:08)
[2018-01-06] MEDS ORDERED: COL100C PO (07:08)
[2018-01-06] MEDS ORDERED: HYDR-3972 PO (07:08)
[2018-01-06] MEDS ORDERED: LISI-600 PO (07:08)
[2018-01-06] MEDS ORDERED: ATOR10TA PO (07:14)
[2018-01-06] MEDS: docusate sod 100mg capsule PO SCH (08:41)
[2018-01-06] MEDS: lactobacillus rhamnosus 10,000 MMU CELLS/CAPSULE PO SCH (08:41)
[2018-01-06] MEDS: aspirin 81mg tab.chew PO SCH (08:41)
[2018-01-06] MEDS: metoprolol tartrate 25mg tablet PO SCH (08:41)
[2018-01-06] MEDS: pantoprazole 40mg Tablet.DR PO SCH (08:41)
[2018-01-06] MEDS: HYDROcodone/acetaminophen 10/325mg tab PO PRN (10:10)
== END 2018-01-06 11:25 | disposition home or self-care (01) | DRG 234 ==
LOC: SSTAY O 10:51 → PCU 3S 19:23 → CICU 2S 01-02 14:25 → PCU 3S 01-04 22:30
PROVIDERS: ADMIT Internal Medicine Interventional Cardiology; ATTEND Internal Medicine Interventional Cardiology
PROC: 4A023N7 Measurement of Cardiac Sampling and Pressure, Left Heart, Percutaneous Approach (ICD-10-PCS; principal; 2017-12-31)
PROC: B2111ZZ Fluoroscopy of Multiple Coronary Arteries using Low Osmolar Contrast (ICD-10-PCS; 2017-12-31)
PROC: B2151ZZ Fluoroscopy of Left Heart using Low Osmolar Contrast (ICD-10-PCS; 2017-12-31)
PROC: B3121ZZ Fluoroscopy of Left Subclavian Artery using Low Osmolar Contrast (ICD-10-PCS; 2017-12-31)
PROC: 02100Z9 Bypass Coronary Artery, One Artery from Left Internal Mammary, Open Approach (ICD-10-PCS; 2018-01-02)
PROC: 021309W Bypass Coronary Artery, Four or More Arteries from Aorta with Autologous Venous Tissue, Open Approach (ICD-10-PCS; 2018-01-02)
PROC: 06BQ4ZZ Excision of Left Saphenous Vein, Percutaneous Endoscopic Approach (ICD-10-PCS; 2018-01-02)
PROC: 07BM0ZZ Excision of Thymus, Open Approach (ICD-10-PCS; 2018-01-02)
PROC: 5A1221Z Performance of Cardiac Output, Continuous (ICD-10-PCS; 2018-01-02)
PROC: B24BZZ4 Ultrasonography of Heart with Aorta, Transesophageal (ICD-10-PCS; 2018-01-02)
PROC: 02HV33Z Insertion of Infusion Device into Superior Vena Cava, Percutaneous Approach (ICD-10-PCS; 2018-01-02)
DX: I25.110 Atherosclerotic heart disease of native coronary artery with unstable angina pectoris (principal); R22.2 Localized swelling, mass and lump, trunk; I10 Essential (primary) hypertension; Z90.49 Acquired absence of other specified parts of digestive tract; Z79.899 Other long term (current) drug therapy; Z79.01 Long term (current) use of anticoagulants; Z79.82 Long term (current) use of aspirin; Z80.9 Family history of malignant neoplasm, unspecified; Z82.0 Family history of epilepsy and other diseases of the nervous system; Z82.49 Family history of ischemic heart disease and other diseases of the circulatory system
CPT/HCPCS: 0232T; 93312; 93325; 93458; 36415; 36600; 71045; 80048; 80053; 80061; 81003; 82330; 82435; 82803; 82947; 82948; 83036; 83735; 84100; 84132; 84295; 85018; 85025; 85347; 85384; 85610; 85730; 86885; 86900; 86901; 86920; 87070; 88305; 93005; 93880; 93971; 94002; 94003; 94010; 94667; 94668; 94760; 97110; 97116; 97162; 97530; 99152; A4620; A6213; A6222; A6255; A6257; A6258; A6402; A6449; A7000; A7048; C1751; C1769; J0360; J0690; J1644; J1815; J1885; J1940; J2001; J2060; J2150; J2250; J2270; J2370; J2440; J2704; J3010; J3370; J3480; J3490; J7030; J7060; J7120; P9045; P9047; Q0163; Q9967